=== PATIENT | male | born 1995 | race Caucasian/White ===

== ENCOUNTER 2021-08-25 13:09 | Emergency (ER) | payer OTHER ==
[~2021-08-25] VITALS: Ht 185.4 cm; Wt 87.5 kg
[~2021-08-25 13:09] MED LIST: IBUPROFEN 600600 M1 PO
[2021-08-25 14:29] VITALS: BP 141/70
== END 2021-08-25 14:30 | disposition home or self-care (01) ==
LOC: M.ERS 13:09
DX: S52.592A Other fractures of lower end of left radius, initial encounter for closed fracture (principal); S52.612A Displaced fracture of left ulna styloid process, initial encounter for closed fracture; W19.XXXA Unspecified fall, initial encounter; Y93.89 Activity, other specified; Y92.89 Other specified places as the place of occurrence of the external cause; Y99.8 Other external cause status

== ENCOUNTER → 2021-08-27 | Outpatient (CLI) | payer OTHER | LOC: M.LAB 14:27 | PROVIDERS: ATTEND Orthopaedic Surgery | DX: Z01.812 Encounter for preprocedural laboratory examination (principal); Z20.822 Contact with and (suspected) exposure to COVID-19 ==